=== PATIENT | male | born 1940 | race Caucasian/White ===

== ENCOUNTER 2018-04-04 10:35 | Emergency (ER) | payer OTHER ==
[2018-04-04 10:49] VITALS: BP 138/83; PULSE 75; TEMP 97.9; BMI 23.6
--- NOTE | 2018-04-04 10:56 | PDOC ---
History of Present Illness - General Chief Complaint: Respiratory Stated Complaint: COUGH & BODY ACHES X 3 WKS Time Seen by Provider: 04/04/18 10:55 Past History - Past Medical History Allergies/Adverse Reactions: Allergies Allergy/AdvReac Type Severity Reaction Status Date / Time No Known Allergies Allergy Verified 04/04/18 10:42 Home Medications: Ambulatory Orders Albuterol Sulfate Inhaler - [Ventolin Hfa Inhaler -] 2 inh PO Q6H PRN 04/04/18 Benzonatate [Tessalon Pearls -] 100 mg PO TID 04/04/18 Mometasone/Formoterol [Dulera 200 Mcg/5 Mcg Inhaler] 2 inh IH BID 04/04/18 Umeclidinium [place] [Incruse Ellipta] 62.5 mcg IH DAILY 04/04/18 COPD: Yes - Suicide/Smoking/Psychosocial Hx Smoking History: Former smoker Have you smoked in the past 12 months: No If you are a former smoker, when did you quit?: 2010 Information on smoking cessation initiated: No Hx Alcohol Use: No Drug/Substance Use Hx: No *Physical Exam - Vital Signs Last Vital Signs Temp Pulse Resp BP Pulse Ox 97.9 F 75 22 H 138/83 94 L 04/04/18 10:41 04/04/18 10:41 04/04/18 10:41 04/04/18 10:41 04/04/18 10:41 Moderate Sedation - Procedure Monitoring Vital Signs: Procedure Monitoring Vital Signs Temperature 97.9 F 04/04/18 10:41 Pulse Rate 75 04/04/18 10:41 Respiratory Rate 22 H 04/04/18 10:41 Blood Pressure 138/83 04/04/18 10:41 O2 Sat by Pulse Oximetry (%) 94 L 04/04/18 10:41 *DC/Admit/Observation/Transfer - Discharge Dispostion Condition at time of disposition: Good - Referrals Referrals: Frank Fontana MD [Primary Care Provider] - - Patient Instructions - Post Discharge Activity
[2018-04-04] MEDS ORDERED: ALBUTEROL SO4 2.5/IPRATROPIUM 0.5 INH SOL 3 ML VIAL.NEB. NEB ONE ×2 (11:07→11:14)
[2018-04-04] MEDS ORDERED: ACETAMINOPHEN 1000 MG/100 ML VIAL (NON FORMULARY) IVPB ONE (11:07)
[2018-04-04] MEDS ORDERED: SODIUM CHLORIDE 0.9% 1000 ML INFUS.BAG IV ONE (11:07)
[2018-04-04] MEDS ORDERED: ACETAMINOPHEN INJECTION 100 ML IVPB ONE (11:14)
--- NOTE | 2018-04-04 11:28 | PDOC ---
History of Present Illness - General Chief Complaint: Respiratory Stated Complaint: COUGH & BODY ACHES X 3 WKS Time Seen by Provider: 04/04/18 10:55 - History of Present Illness Initial Comments: 04/04/18 11:50 78 years old past medical history significant for COPD presents to the emergency department with 3 week history of cough congestion wheezing chills and bodyaches. Patient has seen his primary care provider and test puller 3 times for this same issue was placed on a steroid Dosepak which finished last week as well as benzonate cough suppressant. He states that his symptoms are not any worse but are just not getting better and he is frustrated. No travel no sick contacts Symptoms are moderate persistent constant with no exacerbating or relieving factors. Past History - Past Medical History Allergies/Adverse Reactions: Allergies Allergy/AdvReac Type Severity Reaction Status Date / Time No Known Allergies Allergy Verified 04/04/18 10:42 Home Medications: Ambulatory Orders Albuterol Sulfate Inhaler - [Ventolin Hfa Inhaler -] 2 inh PO Q6H PRN 04/04/18 Azithromycin [Zithromax 250mg Tablets -] 250 mg PO DAILY 5 Days #6 tablet Benzonatate [Tessalon Pearls -] 100 mg PO TID 04/04/18 Hydrocodone Bit/Homatrop Me-Br [Hydrocodone Compound Syrup] 5 ml PO HS #20 ml MDD 5ml 04/04/18 Mometasone/Formoterol [Dulera 200 Mcg/5 Mcg Inhaler] 2 inh IH BID 04/04/18 Umeclidinium [place] [Incruse Ellipta] 62.5 mcg IH DAILY 04/04/18 COPD: Yes - Suicide/Smoking/Psychosocial Hx Smoking History: Former smoker Have you smoked in the past 12 months: No If you are a former smoker, when did you quit?: 2010 Information on smoking cessation initiated: No Hx Alcohol Use: No Drug/Substance Use Hx: No Review of Systems - Review of Systems Comments:: 04/04/18 11:28 ROS: A complete review of 10 out of 10 review of systems is taken and is negative apart from what is previously mentioned below and in the HPI. *Physical Exam - Vital Signs Last Vital Signs Temp Pulse Resp BP Pulse Ox 97.9 F 75 22 H 138/83 94 L 04/04/18 10:41 04/04/18 10:41 04/04/18 10:41 04/04/18 10:41 04/04/18 10:41 - Physical Exam Comments: 04/04/18 11:50 Vitals: Triage Vital signs reviewed General Appearance: no acute distress, well nourished well developed, Head: Atraumatic, Throat: Posterior oropharynx without erythema, mucous membranes moist, Neck: Supple;No Nucal rigidity Chest Wall: Nontender Cardiac: Regular rate and rhythym, no murmurs, no rubs, no gallops, Lungs: Clear to auscultation bilateral, good air movement bilaterally, Abdomen: Soft, non distended, normal bowel sounds, non tender to palpation Extremities: Full range of motion to all extremities, no cyanosis, clubbing, or edema Skin: Warm and dry, no rashes or lesions, no rash, no petechiae Psych: normal mood, normal affect Moderate Sedation - Procedure Monitoring Vital Signs: Procedure Monitoring Vital Signs Temperature 97.9 F 04/04/18 10:41 Pulse Rate 75 04/04/18 10:41 Respiratory Rate 22 H 04/04/18 10:41 Blood Pressure 138/83 04/04/18 10:41 O2 Sat by Pulse Oximetry (%) 94 L 04/04/18 10:41 ED Treatment Course - LABORATORY CBC & Chemistry Diagram: 04/04/18 11:20 04/04/18 11:20 - RADIOLOGY Radiology Studies Ordered: Category Date Time Status CXRPORT [CHEST X-RAY PORTABLE*] [RAD] Stat Radiology 04/04/18 11:07 Ordered - Medications Given in the ED: ED Medications Discontinued Medications Generic Name Dose Route Start Last Admin Trade Name Jaki PRN Reason Stop Dose Admin Acetaminophen 1,000 mg 04/04/18 11:07 04/04/18 11:20 Ofirmev Injection - IVPB 04/04/18 11:08 1,000 mg ONCE ONE Administration Albuterol/Ipratropium 3 amp 04/04/18 11:07 04/04/18 11:22 Duoneb - NEB 04/04/18 11:08 3 amp ONCE ONE Administration Sodium Chloride 1,000 ml 04/04/18 11:07 04/04/18 11:20 Normal Saline - IV 04/04/18 11:08 1,000 ml ONCE ONE Administration Medical Decision Making - Medical Decision Making 04/04/18 12:45 EKG performed at 1146 demonstrates normal sinus rhythm no ST elevations or T- wave inversions Interpreted by me Questionable hazy area at right lower lung interpreted by me WBC noted to be 14 likely from recent steroid use Given persistence of symptoms we'll treat with azithromycin in addition to patient's home COPD medications will also prescribe Hycodan cough syrup at night 5 days Findings, the need for follow-up and strict return instructions discussed with patient. 04/04/18 12:49 *DC/Admit/Observation/Transfer Diagnosis at time of Disposition: Bronchitis, Atypical pneumonia - Discharge Dispostion Disposition: HOME Condition at time of disposition: Good Decision to Admit order: No - Prescriptions Prescriptions: Azithromycin [Zithromax 250mg Tablets -] 250 mg PO DAILY 5 Days #6 tablet Hydrocodone Bit/Homatrop Me-Br [Hydrocodone Compound Syrup] 5 ml PO HS #20 ml MDD 5ml - Referrals Referrals: Frank Fontana MD [Primary Care Provider] - - Patient Instructions Printed Discharge Instructions: DI for Acute Bronchitis Additional Instructions: Continue all your home COPD medications as prescribed. Take antibiotics as prescribed take Hycodan cough syrup 5 mL's at night for 5 days. Follow-up with her test puller on Saturday return to ED for any severe worsening symptoms or for any concerns. - Post Discharge Activity
[2018-04-04 11:46] LABS: RBC 5.33 M/mm3 (4.00-5.60)
[2018-04-04 12:05] LABS: ALBUMIN 3.6 g/dl (3.4-5.0); ALK PHOS 58 U/L (45-117); ANION GAP 7 MMOL/L (8-16); BILIRUBIN,TOTAL 0.7 mg/dl (0.2-1); BLOOD UREA NITROGEN 17 mg/dl (7-18); CALCIUM 9.1 mg/dl (8.5-10); CHLORIDE 100 mmol/L (98-107); CO2 28 mmol/L (21-32); CREATININE 0.9 mg/dl (0.55-1.3); GLUCOSE,RANDOM 104 mg/dl (74-106); POTASSIUM 4.7 mmol/L (3.5-5.1); SGOT/AST 16 U/L (15-37); SGPT/ALT 21 U/L (13-61); SODIUM 135 mmol/L (136-145); TOT PROT 6.5 g/dl (6.4-8.2)
[2018-04-04 12:09] LABS: HEMATOCRIT 46.9 % (35.4-49); HEMOGLOBIN 15.4 GM/dl (11.7-16.9); MCH 28.8 pg (25.7-33.7); MCHC 32.8 g/dl (32.0-35.9); MEAN CELL VOLUME 87.9 fl (80-96); MEAN PLT VOLUME 8.8 fl (7.5-11.1); PLATELET COUNT 267 K/MM3 (134-434); RDW 14.2 % (11.9-15.9)
[2018-04-04 12:41] LABS: PLATELET ESTIMATE ADEQUATE
--- NOTE | 2018-04-05 22:16 | EKG ---
Test Reason : Blood Pressure : / mmHG Vent. Rate : 061 BPM Atrial Rate : 061 BPM P-R Int : 196 ms QRS Dur : 084 ms QT Int : 368 ms P-R-T Axes : 072 -48 061 degrees QTc Int : 370 ms NORMAL SINUS RHYTHM LEFT ANTERIOR FASCICULAR BLOCK ABNORMAL ECG NO PREVIOUS ECGS AVAILABLE Confirmed by ADE GREENBERG MD ([id number]) on 04/05/2018 10:15:56 PM Referred By: Confirmed By:ADE GREENBERG MD
== END 2018-04-04 12:54 | disposition home or self-care (01) ==
LOC: FER 10:35
PROC: 3E033NZ Introduction of Analgesics, Hypnotics, Sedatives into Peripheral Vein, Percutaneous Approach (ICD-10-PCS; principal; 2018-04-04)
PROC: 3E0337Z Introduction of Electrolytic and Water Balance Substance into Peripheral Vein, Percutaneous Approach (ICD-10-PCS; 2018-04-04)
PROC: 3E0F7GC Introduction of Other Therapeutic Substance into Respiratory Tract, Via Natural or Artificial Opening (ICD-10-PCS; 2018-04-04)
DX: J18.9 Pneumonia, unspecified organism (principal); J40 Bronchitis, not specified as acute or chronic; J44.9 Chronic obstructive pulmonary disease, unspecified; Z87.891 Personal history of nicotine dependence
CPT/HCPCS: 36415; 71045-TC-FY; 80053; 84484; 85025; 87804; 93005; 94640; 96374; 99283-25; J0131; J7030